=== PATIENT | female | born 1975 | race Caucasian/White ===

== ENCOUNTER → 2016-11-07 | Outpatient (CLI) | payer BC ==
[~2016-11-07] VITALS: Ht 162.6 cm; Wt 59.1 kg
[~2016-11-07] MED LIST: IRON325 M1 PO; PRENATAL TABLE1 EAC3 PO
[2016-11-07 11:44] VITALS: BP 120/73
== END | disposition home or self-care (01) ==
LOC: IVINF 11:30
DX: Z31.82 Encounter for Rh incompatibility status (principal); Z3A.28 28 weeks gestation of pregnancy; Z67.41 Type O blood, Rh negative
CPT/HCPCS: J2790

== ENCOUNTER 2016-12-02 11:01 | Outpatient (CLI) | payer BC ==
[2016-12-02 11:24] VITALS: BP 132/89
[2016-12-02 12:20] LABS: EOSINOPHIL (%) 0.7 % (0-5); EOSINOPHIL COUNT 0.1 K/uL (0-0.3); HEMATOCRIT 36.1 % (36.0-46.0); IMMATURE GRANULOCYTE (%) 0.7 % (0.0-0.7); IMMATURE GRANULOCYTE COUNT 0.1 K/uL; LYMPHOCYTE COUNT 1.7 K/uL (1.0-2.8); MCH 34.3 PG (29.0-34.0); MCHC 34.3 G/DL (30.0-36.0); MCV 99.7 FL (83-99); MEAN PLAT.VOLUME 10.3 uM^3 (9.5-12.4); MONOCYTE (%) 5.9 % (3-12); MONOCYTE COUNT 0.8 K/uL (0-0.8); NEUTROPHIL (%) 79.8 % (45-76); PLATELET COUNT 255 K/uL (156-360); RBC DIS.WIDTH-CV 13.4 % (11.8-14.6); RBC DIS.WIDTH-SD 49.1 % (39-53); RED BLOOD COUNT 3.62 M/uL (3.80-5.20); WHITE BLOOD COUNT 13.8 K/uL (4.1-10.2)
[2016-12-02 12:27] LABS: ADD MIUA? YES; BILIRUBIN NEGATIVE; BLOOD MODERATE; COLOR YELLOW ((YELLOW)); GLUCOSE (STRIP) NEGATIVE; KETONES NEGATIVE; LEUKOCYTES TRACE; NITRITE NEGATIVE; PROTEIN (STRIP) NEGATIVE; SPECIFIC GRAVITY 1.004 (1.000-1.030); UROBILINOGEN 0.2 MG/DL (0.2-1.0)
[2016-12-02 12:36] LABS: ANION GAP 8 MEQ/L (2-14); CHLORIDE 110 MEQ/L (99-109); POTASSIUM 4.1 MEQ/L (3.7-5.4); SAMPLE HEMOLYSIS CHECK 0; SAMPLE ICTERIC CHECK 0; SAMPLE LIPEMIA CHECK 0; SODIUM 139 MEQ/L (136-147); TOTAL BILIRUBIN 0.3 MG/DL (0.0-1.0)
[2016-12-02 12:40] LABS: BACTERIA NONE SEEN /HPF; EPITHELIAL CELLS RARE /HPF; MUCUS NONE SEEN /LPF; RED BLOOD CELLS NONE SEEN /HPF (0-5); UCUL ADDED? NO; WHITE BLOOD CELLS 0-5 /HPF (0-5)
[2016-12-02 12:42] LABS: ALKALINE PHOSPHATASE 71 IU/L (3-129); GFR ESTIMATE (CALCULATED) > 59 mL/min/; GLUCOSE 79 mg/dL (70-99); UREA NITROGEN (BUN) 6 mg/dL (9-23)
[2016-12-02 12:47] LABS: FIBRINOGEN 440 MG/DL (160-450)
[2016-12-02 12:50] LABS: INTER. NORMALIZED RATIO 0.9; PROTHROMBIN TIME 9.3 (9.2-11.2); PTT 25.4 (25-32)
[2016-12-02 13:00] VITALS: BP 129/77
[2016-12-02 13:01] LABS: AMPHETAMINE NEGATIVE (500 ng/mL); BARBITURATES NEGATIVE (200 ng/mL); BENZODIAZEPINES NEGATIVE (150 ng/mL); COCAINE NEGATIVE (150 ng/mL); INTERNAL CONTROLS VALID? YES; METHADONE NEGATIVE (200 ng/mL); METHAMPHETAMINE NEGATIVE (500 ng/mL); OPIATES (MORPHINE) NEGATIVE (100 ng/mL); OXYCODONE NEGATIVE (100 ng/mL); PHENCYCLIDINE NEGATIVE (25 ng/mL); PROPOXYPHENE NEGATIVE (300 ng/mL); THC CANNABINOIDS NEGATIVE (50 ng/mL); TRICYCLIC ANTIDEPRESSANTS NEGATIVE (300 ng/mL)
[2016-12-02 16:29] LABS: DRSB INTERNAL CONTROL PASS; PROBE CHECK PASS; SPECIMEN PROCESSING CONTROL PASS
[2016-12-02 17:40] VITALS: BP 110/74
[2016-12-02 19:19] VITALS: BP 108/66
[2016-12-02 21:59] LABS: CANDIDA DNA PROBE NEGATIVE; GARDNERELLA DNA PROBE POSITIVE; INTERNAL CONTROL VALID? YES
[2016-12-02 23:19] VITALS: BP 106/58
[2016-12-03 04:41] VITALS: BP 97/55
[2016-12-03 06:54] VITALS: BP 102/65
[2016-12-03 07:48] LABS: EOSINOPHIL (%) 0.1 % (0-5); HEMATOCRIT 32.1 % (36.0-46.0); IMMATURE GRANULOCYTE (%) 0.6 % (0.0-0.7); IMMATURE GRANULOCYTE COUNT 0.1 K/uL; INSTRUMENT ABS NEUTROPHIL CT 14.9 K/uL; MCHC 35.2 G/DL (30.0-36.0); MCV 99.4 FL (83-99); MEAN PLAT.VOLUME 10.5 uM^3 (9.5-12.4); MONOCYTE (%) 5.5 % (3-12); NEUTROPHIL (%) 82.6 % (45-76); NEUTROPHIL COUNT 14.9 K/uL (1.8-6.4); PLATELET COUNT 252 K/uL (156-360); RBC DIS.WIDTH-CV 13.4 % (11.8-14.6); RBC DIS.WIDTH-SD 48.4 % (39-53); RED BLOOD COUNT 3.23 M/uL (3.80-5.20)
[2016-12-03 11:42] VITALS: BP 109/67
[2016-12-03 15:19] VITALS: BP 104/67
[2016-12-03 19:24] VITALS: BP 115/57
[2016-12-03 22:40] VITALS: BP 89/52
[2016-12-04 03:04] VITALS: BP 105/65
[2016-12-04 07:31] VITALS: BP 108/65
[2016-12-04] MEDS ORDERED: METRONIDAZOLE500 MG PO (07:57)
[2016-12-05 13:36] LABS: CHLAMYDIA TRACHOMATIS NEGATIVE; NEISSERIA GONORRHOEAE NEGATIVE
== END 2016-12-04 09:50 | disposition home or self-care (01) ==
LOC: LDRP-OP 11:01 → 2WEST 11:02 → LDRP-OP 02-24 16:25
PROVIDERS: Obstetrics & Gynecology
DX: O46.93 Antepartum hemorrhage, unspecified, third trimester (principal); Z3A.32 32 weeks gestation of pregnancy; O09.523 Supervision of elderly multigravida, third trimester; O23.593 Infection of other part of genital tract in pregnancy, third trimester; B96.89 Other specified bacterial agents as the cause of diseases classified elsewhere; O60.03 Preterm labor without delivery, third trimester
CPT/HCPCS: 59025; 76805; 76818; 80053; 81003; 83030; 85025; 85384; 85460; 85610; 85730; 86870; 86900; 86901; 86905; 86920; 87081; 87480; 87491; 87510; 87591; 87653; 87660; G0378; J0702; J2790; J7120

== ENCOUNTER 2016-12-08 04:53 | Outpatient (CLI) | payer BC ==
[~2016-12-08] VITALS: Ht 162.6 cm; Wt 63.6 kg
[~2016-12-08 04:53] MED LIST changes: +METRONIDAZOLE500 MG PO
[2016-12-08 05:08] VITALS: BP 140/94
[2016-12-08 05:20] VITALS: BP 133/78
[2016-12-08 06:15] LABS: EOSINOPHIL (%) 0.9 % (0-5); EOSINOPHIL COUNT 0.1 K/uL (0-0.3); HEMATOCRIT 33.5 % (36.0-46.0); IMMATURE GRANULOCYTE (%) 0.7 % (0.0-0.7); IMMATURE GRANULOCYTE COUNT 0.1 K/uL; INSTRUMENT ABS NEUTROPHIL CT 11.4 K/uL; LYMPHOCYTE COUNT 2.7 K/uL (1.0-2.8); MCH 34.9 PG (29.0-34.0); MCHC 34.9 G/DL (30.0-36.0); MEAN PLAT.VOLUME 10.3 uM^3 (9.5-12.4); MONOCYTE (%) 6.9 % (3-12); MONOCYTE COUNT 1.1 K/uL (0-0.8); NEUTROPHIL (%) 74.1 % (45-76); NEUTROPHIL COUNT 11.4 K/uL (1.8-6.4); PLATELET COUNT 289 K/uL (156-360); RBC DIS.WIDTH-CV 13.4 % (11.8-14.6); RBC DIS.WIDTH-SD 48.2 % (39-53); RED BLOOD COUNT 3.35 M/uL (3.80-5.20); WHITE BLOOD COUNT 15.4 K/uL (4.1-10.2)
[2016-12-08 06:28] LABS: INTER. NORMALIZED RATIO 0.9; PTT 22.5 (25-32)
[2016-12-08 06:29] LABS: PROTHROMBIN TIME 9.3 (9.2-11.2)
[2016-12-08 06:54] VITALS: BP 128/86
[2016-12-08 06:58] LABS: FIBRINOGEN 366 MG/DL (160-450)
[2016-12-08 08:28] VITALS: BP 118/71
[2016-12-08 10:21] VITALS: BP 115/71
== END 2016-12-08 11:30 | disposition home or self-care (01) ==
LOC: LDRP-OP 04:53 → 2WEST 04:54 → LDRP-OP 02-24 10:49
PROVIDERS: Midwife
DX: O46.93 Antepartum hemorrhage, unspecified, third trimester (principal); Z3A.33 33 weeks gestation of pregnancy; O09.523 Supervision of elderly multigravida, third trimester; O23.593 Infection of other part of genital tract in pregnancy, third trimester; N76.0 Acute vaginitis
CPT/HCPCS: 59025; 76805; 76818; 85025; 85384; 85460; 85610; 85730; G0378; J7120

== ENCOUNTER 2017-01-19 06:26 | Inpatient (IN) | payer BC ==
[~2017-01-19] VITALS: Ht 162.6 cm; Wt 64.5 kg
[2017-01-19] VITALS (15 sets, daily range): BP systolic 99–158; BP diastolic 55–84
[2017-01-19 07:56] LABS: EOSINOPHIL (%) 1.4 % (0-5); EOSINOPHIL COUNT 0.2 K/uL (0-0.3); HEMATOCRIT 39.2 % (36.0-46.0); IMMATURE GRANULOCYTE (%) 0.6 % (0.0-0.7); IMMATURE GRANULOCYTE COUNT 0.1 K/uL; INSTRUMENT ABS NEUTROPHIL CT 10.6 K/uL; LYMPHOCYTE COUNT 2.3 K/uL (1.0-2.8); MCH 34.2 PG (29.0-34.0); MCHC 34.2 G/DL (30.0-36.0); MEAN PLAT.VOLUME 10.6 uM^3 (9.5-12.4); MONOCYTE (%) 5.5 % (3-12); MONOCYTE COUNT 0.8 K/uL (0-0.8); NEUTROPHIL COUNT 10.6 K/uL (1.8-6.4); PLATELET COUNT 272 K/uL (156-360); RBC DIS.WIDTH-CV 13.6 % (11.8-14.6); RBC DIS.WIDTH-SD 50.1 % (39-53); RED BLOOD COUNT 3.92 M/uL (3.80-5.20); WHITE BLOOD COUNT 13.9 K/uL (4.1-10.2)
[2017-01-20 07:12] VITALS: BP 102/62
[2017-01-20] MEDS ORDERED: IBUPROFEN800 MG PO (09:29)
[2017-01-20 15:12] VITALS: BP 113/71
[2017-01-20 22:30] VITALS: BP 129/63
[2017-01-21 06:55] VITALS: BP 99/59
[2017-01-21 14:15] VITALS: BP 105/62
== END 2017-01-21 18:45 | disposition home or self-care (01) | DRG 774 ==
LOC: LDRP-OP 06:26 → 2WEST 06:27 → LDRP-OP 22:21 → 2WEST 01-21 18:45 → LDRP-OP 02-24 12:19
PROVIDERS: Obstetrics & Gynecology
PROC: 10E0XZZ Delivery of Products of Conception, External Approach (ICD-10-PCS; principal; 2017-01-19)
PROC: 10907ZC Drainage of Amniotic Fluid, Therapeutic from Products of Conception, Via Natural or Artificial Opening (ICD-10-PCS; 2017-01-19)
PROC: 3E033VJ Introduction of Other Hormone into Peripheral Vein, Percutaneous Approach (ICD-10-PCS; 2017-01-19)
DX: O45.8X3 Other premature separation of placenta, third trimester (principal); O36.0931 Maternal care for other rhesus isoimmunization, third trimester, fetus 1; O99.334 Smoking (tobacco) complicating childbirth; F17.210 Nicotine dependence, cigarettes, uncomplicated; O43.123 Velamentous insertion of umbilical cord, third trimester; F41.0 Panic disorder [episodic paroxysmal anxiety]; O99.344 Other mental disorders complicating childbirth; Z37.0 Single live birth; Z3A.39 39 weeks gestation of pregnancy
CPT/HCPCS: 83030; 85025; 86870; 86900; 86901; J2790; J7120